=== PATIENT | female | born 2000 | race Caucasian/White ===

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

== ENCOUNTER 2022-12-25 11:38 | Emergency (ER) | payer BC ==
[~2022-12-25] VITALS: Ht 157.5 cm; Wt 166.0 kg
[~2022-12-25 11:38] MED LIST changes: +ONDANSETRON4 MG PO
[2022-12-25] MEDS ORDERED: TRAZODONE300 MG PO (12:25)
[2022-12-25] MEDS ORDERED: RITALIN10 MG PO (12:26)
[2022-12-25] MEDS ORDERED: LEXAPRO10 MG PO (12:29)
[2022-12-25] MEDS ORDERED: HYDROXYZ HCL25 MG PO (12:31)
[2022-12-25 12:52] LABS: BASO% 0.3 % (0-3); EOS% 0.6 % (0-8); HEMOGLOBIN 15.3 g/dl (12.0-16.0); IMMATURE GRANULOCYTES 0.2 % (0.0-5.0); LYMPH% 22.1 % (15-41); MEAN CELL VOLUME 88.6 fL CALC (80.0-100.0); MEAN CORPUSCULAR HGB 28.5 pG CALC (26.0-32.0); MEAN CORPUSCULAR HGB CONC 32.2 g/dL CAL (32.0-36.0); MONO% 6.1 % (2-13); NEUT# 7.17 thou/uL (2.00-7.15); NEUT% 70.7 % (42-76); RED BLOOD COUNT 5.36 mill/uL (4.20-5.60); RED CELL DISTRI WIDTH 12.7 % (11.5-15.5)
[2022-12-25 12:53] LABS: HEMATOCRIT 47.5 % (37.0-47.0)
[2022-12-25 13:04] LABS: ALBUMIN 5.1 g/dL (3.2-5.0); ALKALINE PHOSPHATASE 117 u/l (38-126); ANION GAP 17 (6-22 (CALC)); BILIRUBIN, TOTAL 0.7 mg/dL (0.02-1.3); BUN 10 mg/dL (7-17); BUN/CREATININE RATIO 15 (12-20 (CALC)); CARBON DIOXIDE 27 mmol/l (22-30); CHLORIDE 101 mmol/l (95-108); CREATININE 0.7 mg/dL (0.5-1.0); GFR FOR AFR.AMER. > 60 ML/MIN (>=60 (CALC)); GFR OTHER RACES > 60 ML/MIN (>=60 (CALC)); POTASSIUM 4.2 mmol/l (3.5-5.1); SGOT/AST 32 u/l (14-36); SODIUM 141 mmol/l (137-146); TOTAL PROTEIN 9.4 g/dL (6.3-8.2)
[2022-12-25 13:10] LABS: URINE BILIRUBIN - DIPSTICK SEE COMMNET (NEGATIVE); URINE BLOOD DIPSTICK NEGATIVE (NEGATIVE); URINE COLOR YELLOW; URINE GLUCOSE - DIPSTICK NEGATIVE (NEGATIVE); URINE KETONE 15 mg/dL (NEGATIVE); URINE LEUK ESTERASE TRACE (NEGATIVE); URINE NITRITE - DIPSTICK NEGATIVE (Negative); URINE PROTEIN - DIPSTICK TRACE mg/dL (NEG-TRACE); URINE SPECIFIC GRAVITY 1.025; URINE UROBILINOGEN - DIPSTICK 0.2 E.U./dL (0.2)
[2022-12-25 13:11] LABS: URINE BACTERIA FEW hpf; URINE SQUAMOUS EPITHELIAL CELL MANY EPI/hpf (0-FEW); URINE WBC 0-2 WBC/hpf (0-5)
[2022-12-25] MEDS ORDERED: CETIRIZINE10 MG PO (14:48)
[2022-12-25] MEDS ORDERED: AMOX/K CLAV875 M1 PO (14:48)
[2022-12-25] MEDS ORDERED: ALLERGY RE50 MCG/ACT (14:48)
[2022-12-25 14:52] VITALS: BP 158/72
== END 2022-12-25 15:00 | disposition home or self-care (01) | DRG 153 ==
LOC: ED 11:38
PROVIDERS: Nurse Practitioner
DX: J32.9 Chronic sinusitis, unspecified (principal); Z20.822 Contact with and (suspected) exposure to COVID-19

== ENCOUNTER 2023-02-16 10:26 | Emergency (ER) | payer BC ==
[~2023-02-16] VITALS: Ht 157.5 cm; Wt 149.0 kg
[~2023-02-16 10:26] MED LIST changes: +ALLERGY RE50 MCG/ACT; +AMOX/K CLAV875 M1 PO; +CETIRIZINE10 MG PO; +HYDROXYZ HCL25 MG PO; +LEXAPRO10 MG PO; +RITALIN10 MG PO; +TRAZODONE300 MG PO
[2023-02-16 10:37] VITALS: BP 137/76
[2023-02-16] MEDS ORDERED: IBUPROFEN600 MG PO (11:46)
[2023-02-16 11:51] VITALS: BP 122/67
[2023-02-16 12:00] VITALS: BP 125/71
[2023-02-16 12:19] VITALS: BP 128/78
== END 2023-02-16 12:30 | disposition home or self-care (01) | DRG 563 ==
LOC: ED 10:26
DX: S93.401A Sprain of unspecified ligament of right ankle, initial encounter (principal); F41.9 Anxiety disorder, unspecified; F32.A Depression, unspecified; X50.0XXA Overexertion from strenuous movement or load, initial encounter

== ENCOUNTER 2024-01-26 23:00 | Emergency (ER) | payer BC ==
[~2024-01-26] VITALS: Ht 157.5 cm; Wt 145.0 kg
[~2024-01-26 23:00] MED LIST changes: +IBUPROFEN600 MG PO
[2024-01-26 23:18] VITALS: BP 126/61
[2024-01-26] MEDS ORDERED: SODIUM CHLORIDE 0.9% 1,000 ML IV STA (23:26)
[2024-01-26] MEDS ORDERED: PROMETHAZINE HCL 25 MG/ML AMP IV ONE (23:30)
[2024-01-27 00:17] LABS: BASO% 0.2 % (0-3); EOS% 0.2 % (0-8); HEMOGLOBIN 13.7 g/dl (12.0-16.0); IMMATURE GRANULOCYTES 0.1 % (0.0-5.0); LYMPH% 17.9 % (15-41); MEAN CELL VOLUME 87.5 fL CALC (80.0-100.0); MEAN CORPUSCULAR HGB CONC 33.1 g/dL CAL (32.0-36.0); MONO% 4.7 % (2-13); NEUT# 7.38 thou/uL (2.00-7.15); NEUT% 76.9 % (42-76); RED BLOOD COUNT 4.73 mill/uL (4.20-5.60); RED CELL DISTRI WIDTH 12.7 % (11.5-15.5)
[2024-01-27 00:19] LABS: HEMATOCRIT 41.4 % (37.0-47.0)
[2024-01-27 00:24] LABS: URINE BLOOD DIPSTICK Moderate (NEGATIVE); URINE GLUCOSE - DIPSTICK Negative (NEGATIVE); URINE KETONE 40 mg/dL (NEGATIVE); URINE NITRITE - DIPSTICK Negative (Negative); URINE PH 5.5 (4.5-8.0); URINE PROTEIN - DIPSTICK 30 mg/dL (NEG-TRACE); URINE SPECIFIC GRAVITY >=1.030; URINE UROBILINOGEN - DIPSTICK 0.2 E.U./dL (0.2)
[2024-01-27 00:25] LABS: ALBUMIN 4.3 g/dL (3.2-5.0); BILIRUBIN, TOTAL 0.5 mg/dL (0.02-1.3); CREATININE 0.6 mg/dL (0.5-1.0); POTASSIUM 3.7 mmol/l (3.5-5.1); TOTAL PROTEIN 7.6 g/dL (6.3-8.2)
[2024-01-27 00:28] LABS: URINE COLOR Yellow; URINE LEUK ESTERASE Small (NEGATIVE)
[2024-01-27 00:40] LABS: URINE BACTERIA MANY hpf; URINE SQUAMOUS EPITHELIAL CELL MANY EPI/hpf (0-FEW)
[2024-01-27] MEDS ORDERED: ANTI-DIARRHE2 M1 PO (01:03)
[2024-01-27] MEDS ORDERED: PROMETHAZINE HY25 M1 PO (01:03)
[2024-01-27 01:05] VITALS: BP 126/61
== END 2024-01-27 01:37 | disposition home or self-care (01) | DRG 392 ==
LOC: ED 23:00
PROVIDERS: Family Medicine
DX: K52.9 Noninfective gastroenteritis and colitis, unspecified (principal); F41.9 Anxiety disorder, unspecified; F32.A Depression, unspecified; Z20.822 Contact with and (suspected) exposure to COVID-19